=== PATIENT | male | born 1955 | race Caucasian/White ===

== ENCOUNTER 2020-06-20 10:01 | Outpatient (CLI) | payer MEDICARE, SELFPAY | END 2020-06-20 10:02 | disposition home or self-care (01) | PROVIDERS: PCP Family Medicine | DX: Z23 Encounter for immunization (principal) | CPT/HCPCS: 0001A; 91300 ==

== ENCOUNTER 2020-07-11 10:00 | Outpatient (CLI) | payer MEDICARE, SELFPAY | END 2020-07-11 10:01 | disposition home or self-care (01) | LOC: ANHCOVIDVC 10:00 | PROVIDERS: PCP Family Medicine | DX: Z23 Encounter for immunization (principal) | CPT/HCPCS: 0002A; 91300 ==

== ENCOUNTER 2021-01-13 17:57 | Emergency (ER) | payer MEDICARE, SELFPAY ==
--- NOTE | ~2021-01-13 | XR_ITS ---
EXAMINATION: XR foot RT min 3V DATE: 01/13/2021 18:12 INDICATION: Right foot pain, initial encounter TECHNIQUE: Dorsoplantar, lateral, and 2 oblique views of the right foot were obtained. COMPARISON: None. FINDINGS: There is an acute, traumatic, comminuted fracture of the fifth proximal phalanx which does not definitely involve the metatarsophalangeal joint. Soft tissue swelling surrounds the fracture. No additional fracture is identified. Posterior and plantar calcaneal enthesophytes are noted. IMPRESSION: 1. Acute comminuted fracture of the fifth proximal phalanx. Reviewed, dictated and finalized at location A.
[2021-01-13 18:18] VITALS: BP 149/94; PULSE 77; RESP 14; TEMP 36.7; O2SAT 99
[2021-01-13 18:28] VITALS: BP 140/82; PULSE 77; RESP 18; O2SAT 99
--- NOTE | 2021-01-13 18:43 | ED.LOWEXIN ---
HPI - Extremity Injury (Lower) General Chief Complaint: Extremity Injury, Lower Stated Complaint: Right Foot Injury Time Seen by Provider: 01/13/21 18:25 Source: patient Mode of arrival: ambulatory Limitations: no limitations History of Present Illness HPI Narrative: This is a 65-year-old male that presents to the emergency department for right little toe injury sustained just prior to arrival. Reports he got his toe caught on a bookshelf. Reports pain and swelling to the area. Denies numbness. Related Data Allergies Allergy/AdvReac Type Severity Reaction Status Date / Time No Known Allergies Allergy Mild Unverified 10/04/13 14:14 Review of Systems Review of Systems: CONSTITUTIONAL: Denies fever MUSCULOSKELETAL: Reports joint pain, and myalgia. NEUROLOGIC: Denies numbness All systems reviewed & are unremarkable except as noted in HPI and below PMFSH Past Medical History Medical History (Updated 01/13/21 @ 18:50 by Elizabeth Beard PA-C) BMI 28.0-28.9,adult BMI 29.0-29.9,adult Carpal tunnel syndrome on both sides Essential (primary) hypertension Exposure to COVID-19 virus Gastro-esophageal reflux disease without esophagitis Lab test positive for detection of COVID-19 virus Nocturia Family History Family History (Updated 08/10/18 @ 16:57 by DOCTOR UNKNOWN) Father Hypertension Patient's father is in good health Mother Hypertension Diabetes mellitus Patient's mother is in good health Carcinoma of colon Grandparent Family history of rheumatoid arthritis Family history of cardiovascular disease Cerebrovascular accident Family history of malignant neoplasm of breast, Onset Age: 70 Family history of dementia Social History Social History Smoking status: Never smoker Alcohol intake: never Exam Narrative: GENERAL: Well-appearing, well-nourished, and in no acute distress. HEAD: Normocephalic, atraumatic. EYES: EOMI. EXTREMITIES: Normal range of motion. No obvious deformity. Mild swelling about the right 5th toe, painful with palpation. Normal DP pulses SKIN: Warm, dry, no rash. NEURO: No focal deficits. Alert and oriented x3. PSYCH: Normal mood and affect Course Vital Signs Vital signs: Vital Signs Temperature 98.0 F 01/13/21 18:18 Pulse Rate 77 01/13/21 18:18 Respiratory Rate 14 01/13/21 18:18 Blood Pressure 149/94 H 01/13/21 18:18 Pulse Oximetry 99 01/13/21 18:18 Temperature 98.0 F 01/13/21 18:18 Pulse Rate 77 01/13/21 18:28 Respiratory Rate 18 01/13/21 18:28 Blood Pressure 140/82 01/13/21 18:28 Pulse Oximetry 99 01/13/21 18:28 MDM - Extremity Injury (Lower) MDM Narrative Medical decision making narrative: Patient presents to the emergency department for right fifth toe injury sustained just prior to arrival. Right foot x-ray shows an acute comminuted fracture of the fifth proximal phalanx. Patient clyde taped and placed in postop shoe. Instructed to follow-up with his primary doctor. He was given warnings to return to the ER Imaging Data Radiologist's impression: ITS Impressions Foot X-Ray 01/13/21 18:26 IMPRESSION: 1. Acute comminuted fracture of the fifth proximal phalanx. Critical Care Time Critical Care Time Critical Care Time: No Discharge Plan Discharge Clinical Impression: Fracture of toe of right foot Qualifiers: Encounter type: initial encounter Toe: lesser toe Fracture type: closed Phalanx: proximal Fracture alignment: nondisplaced Qualified Code(s): S92.514A - Nondisplaced fracture of proximal phalanx of right lesser toe(s), initial encounter for closed fracture Patient Disposition: Home, Self-Care Condition: Stable Instructions: Toe Fracture (ED) Additional Instructions: Return to the emergency department if you experience fever, redness and swelling of your foot, numbness, or any other symptoms that are concerning to you Rest. Ice
== END 2021-01-13 19:13 | disposition home or self-care (01) ==
LOC: ANHED 18:58
PROVIDERS: Emergency Provider Emergency Medicine; PCP Family Medicine
DX: S92.514A Nondisplaced fracture of proximal phalanx of right lesser toe(s), initial encounter for closed fracture (principal); I10 Essential (primary) hypertension; K21.9 Gastro-esophageal reflux disease without esophagitis; Z86.16 Personal history of COVID-19; W22.8XXA Striking against or struck by other objects, initial encounter
CPT/HCPCS: 73630; 99283; 99284

== ENCOUNTER 2021-04-25 02:31 | Day surgery (SDC) | payer MEDICARE, SELFPAY ==
[2021-04-10 15:02] VITALS: BMI 27.9
--- NOTE | 2021-04-24 14:44 | WPDANESEPPF ---
Anes - Initial Pre Proc Eval Procedure: Operation Date: 04/25/21 10:00 Proposed Procedures p Screening Colonoscopy - Scott Dubois MD Date/Time: 04/24/21 14:44 Surgeon: Scott Dubois MD Pre Op Diagnosis: family hx of colon ca Patient Data Age: 66 Gender: M Height: 1.8 m Weight: 91 kg Allergies Allergy/AdvReac Type Severity Reaction Status Date / Time No Known Allergies Allergy Mild Verified 04/25/21 09:14 Home Medications Medication Instructions Recorded Confirmed Type fluticasone propionate 50 1 spray NASAL BID #18 ml 03/22/20 04/25/21 Rx mcg/actuation nasal spray,suspension amlodipine 10 mg tablet 10 mg PO DAILY #30 tablet 10/02/20 04/25/21 Rx omeprazole 20 mg capsule,delayed 20 mg PO DAILY #90 cap 01/08/21 04/25/21 Rx release irbesartan 300 1 tablet PO DAILY #30 tablet 02/12/21 04/25/21 Rx mg-hydrochlorothiazide 12.5 mg tablet Patient hx anesthesia problems: none Family hx anesthesia problems: none Results Review: All pre-operative results and documents have been reviewed as part of the pre-operative evaluation. [facility] Past Medical History Medical History (Updated 03/06/21 @ 10:36 by Bridger Miller MD) BMI 28.0-28.9,adult BMI 29.0-29.9,adult Carpal tunnel syndrome on both sides Chronic low back pain with right-sided sciatica COVID-19 (11/01/19) Encounter for prostate cancer screening Essential (primary) hypertension Exposure to COVID-19 virus Gastro-esophageal reflux disease without esophagitis Nocturia Family History Family History (Updated 08/10/18 @ 16:57 by DOCTOR UNKNOWN) Father Hypertension Patient's father is in good health Mother Hypertension Diabetes mellitus Patient's mother is in good health Carcinoma of colon Grandparent Family history of rheumatoid arthritis Family history of cardiovascular disease Cerebrovascular accident Family history of malignant neoplasm of breast, Onset Age: 70 Family history of dementia Social History Social History (Updated 03/06/21 @ 09:25 by Bing Reeves MA) Smoking status: Never smoker Alcohol intake: never Substance use: never Substance use type: does not use Living arrangements: with family Spiritual care concerns: No Anes - Eval Final PreProcedure Day of Procedure 04/24/21 14:44 Patient weight: overweight Heart: regular rate and rhythm Lungs: clear to auscultation and normal air movement Airway: Mallampati scale class II Neurological: alert and oriented Last oral intake: >/= 8 hours ASA classification: II Emergent: no Anesthetic plan: proceed Anesthesia type and monitoring: general GIVS and standard monitoring Results Review: All pre-operative results and documents have been reviewed as part of the pre-operative evaluation. Informed Consent: The patient's anesthetic plan and its attendant risks and benefits were discussed with the patient/family/POA. Questions were solicited and answers provided to the satisfaction of the patient/family/POA.
[2021-04-25 09:17] VITALS: BP 157/90; PULSE 98; RESP 18; TEMP 36.8; O2SAT 100; BMI 27.7
[2021-04-25] MEDS: LACTATED RINGERS 1,000 ML 150 ML IV CONT (09:20)
--- NOTE | 2021-04-25 09:24 | WPDGICN ---
Assessment and Plan Assessment and plan (1) Family history of malignant neoplasm of colon in mother: Code(s): Z80.0 - Family history of malignant neoplasm of digestive organs Status: Acute Assessment and Plan: Patient presents for interval colonoscopy because of family history of colon cancer in his mother. Further recommendations will be given after endoscopy. GI Consult Note Consult date/time: 04/25/21 09:24 HPI: Chaitanya Ashford is a 66 year old male Presents for screening colonoscopy. Patient's current weight appetite bowel movements are normal. He denies abdominal pain. He has had no bleeding. Family history is Significant that his mother had colon cancer. Patient reports his own weight appetite bowel movements are normal. Review of Systems Review of Systems: All systems reviewed & are unremarkable except as noted in HPI and below PMFSH Past Medical History Medical History (Updated 03/06/21 @ 10:36 by Bridger Miller MD) BMI 28.0-28.9,adult BMI 29.0-29.9,adult Carpal tunnel syndrome on both sides Chronic low back pain with right-sided sciatica COVID-19 (11/01/19) Encounter for prostate cancer screening Essential (primary) hypertension Exposure to COVID-19 virus Gastro-esophageal reflux disease without esophagitis Nocturia Family History Family History (Updated 08/10/18 @ 16:57 by DOCTOR UNKNOWN) Father Hypertension Patient's father is in good health Mother Hypertension Diabetes mellitus Patient's mother is in good health Carcinoma of colon Grandparent Family history of rheumatoid arthritis Family history of cardiovascular disease Cerebrovascular accident Family history of malignant neoplasm of breast, Onset Age: 70 Family history of dementia Social History Social History (Updated 03/06/21 @ 09:25 by Bing Reeves MA) Smoking status: Never smoker Alcohol intake: never Substance use: never Substance use type: does not use Living arrangements: with family Spiritual care concerns: No Meds Home Medications and Allergies Home Medications Medication Instructions Recorded Confirmed Type fluticasone propionate 50 1 spray NASAL BID #18 ml 03/22/20 04/25/21 Rx mcg/actuation nasal spray,suspension amlodipine 10 mg tablet 10 mg PO DAILY #30 tablet 10/02/20 04/25/21 Rx omeprazole 20 mg capsule,delayed 20 mg PO DAILY #90 cap 01/08/21 04/25/21 Rx release irbesartan 300 1 tablet PO DAILY #30 tablet 02/12/21 04/25/21 Rx mg-hydrochlorothiazide 12.5 mg tablet Allergies Allergy/AdvReac Type Severity Reaction Status Date / Time No Known Allergies Allergy Mild Verified 04/25/21 09:14 Vital Signs Vital Signs - 24 hr 04/25/21 09:17 Temperature 98.2 F Pulse Rate 98 Respiratory Rate 18 Blood Pressure 157/90 H Pulse Oximetry 100 Exam Narrative: Physical exam reveals patient to be alert. Vital signs stable. HEENT exam is unremarkable. Patient is anicteric. Lungs are clear to auscultation and percussion. Heart is without murmur or extra sounds. Abdominal exam bowel sounds present soft nontender with no hepatosplenomegaly. Digital external rectal exam is normal.
[2021-04-25 10:20] VITALS: BP 105/63; PULSE 74; RESP 16; O2SAT 100
[2021-04-25 10:39] VITALS: BP 134/91; PULSE 70; RESP 16; O2SAT 100
== END 2021-04-25 10:42 | disposition home or self-care (01) ==
PROVIDERS: PCP Family Medicine; Visit Provider Internal Medicine Gastroenterology
PROC: 0DJD8ZZ Inspection of Lower Intestinal Tract, Via Natural or Artificial Opening Endoscopic (ICD-10-PCS; CPT 45378; principal; 2021-04-25 10:00)
DX: Z12.11 Encounter for screening for malignant neoplasm of colon (principal); K63.5 Polyp of colon; K21.9 Gastro-esophageal reflux disease without esophagitis; K64.8 Other hemorrhoids; Z86.16 Personal history of COVID-19; I10 Essential (primary) hypertension; Z80.0 Family history of malignant neoplasm of digestive organs; M54.31 Sciatica, right side
CPT/HCPCS: 45380; 88305; J7120

== ENCOUNTER → 2021-09-24 13:41 | Outpatient (CLI) | payer MEDICARE, SELFPAY ==
--- NOTE | ~2021-09-24 | XR_ITS ---
XR_[id number]_CR DATE: 09/24/2021 14:01 INDICATION: Neck pain for about one month TECHNIQUE: AP, open-mouth, lateral, swimmer views COMPARISON: None FINDINGS: There is straightening of the cervical spine which may be due to muscle spasm. C1 and C2 are normally aligned and the odontoid process is intact. No fracture or dislocation or lock ed facet or prevertebral soft tissue swelling. There is mild degenerative disc disease and mild retrolisthesis at C5-6 and C6-7. There is prominent uncovertebral joint spurring bilaterally at C6-7. IMPRESSION: Mild degenerative disc disease and retrolisthesis at C5-6 and C6-7 Prominent uncovertebral joint spurring at C6-7 Straightening of the cervical spine which may be due to muscle spasm Reviewed, dictated and finalized at Location [facility]. Reviewed, dictated and finalized at location A.
== END ==
PROVIDERS: PCP Family Medicine; Visit Provider Nurse Practitioner Family
DX: M50.323 Other cervical disc degeneration at C6-C7 level (principal)
CPT/HCPCS: 72040

== ENCOUNTER → 2021-10-08 11:43 | Outpatient (CLI) | payer MEDICARE, SELFPAY ==
--- NOTE | ~2021-10-08 | XR_ITS ---
EXAM: XR lumbar spine min 4V DATE: 10/08/2021 12:15 HISTORY: M54.41 - Lumbago with sciatica, right side . COMPARISON: None available. FINDINGS: 5 nonrib-bearing lumbar-type vertebral bodies. Pedicles intact. Mild grade 1 retrolisthesi s of L1 on L2 and L2 on L3. 6 mm anterolisthesis of L4 on L5. Vertebral body heights preserved. Multi level disc space narrowing and marginal osteophytosis, with vacuum disc phenomenon at L2-3. Multileve l facet sclerosis and hypertrophy in the lower lumbar spine. No pars defect. No fracture or dislocati on. IMPRESSION: Multilevel grade 1 listheses. Multilevel degenerative disc disease, severe at L2-3. Multi level lower lumbar facet arthropathy. Reviewed, dictated and finalized at location K. IMPRESSION: Multilevel grade 1 listheses. Multilevel degenerative disc disease, severe at L2-3. Multilevel lower lumbar facet arthropathy.
== END ==
PROVIDERS: PCP Family Medicine; Visit Provider Family Medicine
DX: M54.41 Lumbago with sciatica, right side (principal); G89.29 Other chronic pain; M51.36 Other intervertebral disc degeneration, lumbar region
CPT/HCPCS: 72110

== ENCOUNTER 2021-10-14 15:23 | Outpatient (CLI) | payer MEDICARE, SELFPAY ==
--- NOTE | ~2021-10-14 | MR_ITS ---
EXAMINATION: MR lumbar spine wo con DATE: 10/14/2021 16:20 INDICATION: Intermittent bilateral lower extremity weakness TECHNIQUE: Magnetic resonance imaging (MRI) of the lumbar spine was performed without intravenous con trast. Sequences included sagittal T2-weighted FSE, sagittal T2-weighted FS FSE, sagittal T1-weighted FSE, and axial T2-weighted FSE. COMPARISON: None FINDINGS: 5 mm anterolisthesis L4 on L5. One half and 2 mm retrolisthesis L3 on L4. Vertebral body heights are normal. Moderate to severe left-sided predominant disc height loss at L3-L4. There is associated left -sided degenerative endplate remodeling with fibrovascular degenerative endplate changes and with mil d left-sided vertebral body height loss at L2. There is secondary minimal dextrocurvature centered at L2. Additional mild disc height loss at L1-L2, L3-L4 and L5-S1. There is a somewhat heterogeneous pa ttern of red and yellow marrow. Indeterminate 1.5 x 1.4 x 1.8 cm T2 hyperintense, T1 hypointense lesi on at the right side of the L5 vertebral body. The conus medullaris terminates at L1-L2. There is nor mal signal in the caudal spinal cord. Paravertebral soft tissues are unremarkable. The following disc levels are specifically discussed: T12-L1: The disc does not extend beyond the endplate margin. There is mild bilateral facet joint oste oarthritis. There is no neural foraminal stenosis. There is no central canal stenosis. L1-L2: Disc is bulging. There is mild bilateral facet joint osteoarthritis. There is mild bilateral n eural foraminal stenosis. There is mild central canal stenosis. L2-L3: Disc is bulging. There is mild bilateral facet joint osteoarthritis. There is mild to moderate bilateral neural foraminal stenosis. There is mild central canal stenosis with narrowing of the left lateral recess. L3-L4: Disc is bulging. There is mild left and moderate right facet joint osteoarthritis. There is mo derate right and mild to moderate left neural foraminal stenosis. There is mild central canal stenosi s including narrowing of the left and right lateral recesses. L4-L5: Disc is bulging There is severe bilateral facet joint osteoarthritis. There is mild left and m ild to moderate right neural foraminal stenosis. There is moderate central canal stenosis including n arrowing of the left and right lateral recesses. L5-S1: Disc is bulging with superimposed annular fissure and left foraminal zone disc extrusion with disc bulge extending couple millimeters cephalad and caudal to the level of the endplates. There is m oderate bilateral facet joint osteoarthritis. There is moderate bilateral neural foraminal stenosis. There is mild central canal stenosis with narrowing of the left and right lateral recesses. IMPRESSION: 1. Indeterminate 1.5 x 1.4 x 1.8 cm T2 hyperintense, T1 hypointense lesion at the L5 vertebral body. Which could be either benign atypical hemangioma or malignant/metastatic. Correlate for any prior his tory of malignancy and any prior outside imaging. Consider further evaluation with CT and/or bone sca n. 2. Moderate to severe spondylosis at L2-L3 and mild to moderate spondylosis throughout the remainder of the lumbar spine. 3. 5 mm anterolisthesis L4 on L5 with moderate central canal stenosis. Reviewed, dictated and finalized at location A. IMPRESSION: 1. Indeterminate 1.5 x 1.4 x 1.8 cm T2 hyperintense, T1 hypointense lesion at t he L5 vertebral body. Which could be either benign atypical hemangioma or malig nant/metastatic. Correlate for any prior history of malignancy and any prior ou tside imaging. Consider further evaluation with CT and/or bone scan. 2. Moderate to severe spondylosis at L2-L3 and mild to moderate spondylosis thr oughout the remainder of the lumbar
== END 2021-10-14 15:24 | disposition home or self-care (01) ==
PROVIDERS: PCP Family Medicine; Visit Provider Family Medicine
DX: M47.817 Spondylosis without myelopathy or radiculopathy, lumbosacral region (principal); M48.07 Spinal stenosis, lumbosacral region; M54.41 Lumbago with sciatica, right side; G89.29 Other chronic pain; G95.19 Other vascular myelopathies
CPT/HCPCS: 72148

== ENCOUNTER 2022-04-09 11:32 | Emergency (ER) | payer MEDICARE, SELFPAY ==
--- NOTE | ~2022-04-09 | US_ITS ---
EXAMINATION: US venous doppler [facility] DATE: 04/09/2022 13:48 INDICATION: Left lower limb pain and swelling. TECHNIQUE: Grayscale ultrasound images without and with compression and Doppler ultrasound images of the left lower extremity veins were obtained. COMPARISON: None. FINDINGS: The visualized portions of left common femoral vein, profunda (deep) femoral vein, femoral vein, popl iteal vein, peroneal veins, posterior tibial veins, and greater saphenous vein outflow are patent. IMPRESSION: 1. No deep venous thrombosis. Reviewed, dictated and finalized at location A. ER
[2022-04-09 11:34] VITALS: BP 141/105; PULSE 73; RESP 20; TEMP 36.5; O2SAT 100
--- NOTE | 2022-04-09 15:35 | ED.EXTPRO ---
HPI - Extremity Problem General Chief complaint: Extremity Problem,Nontraumatic Stated complaint: L leg swelling Time Seen by Provider: 04/09/22 15:22 History of Present Illness HPI Narrative: Pt presents with redness and swelling to left lower leg starting last night. Pt denies fever or chills. Pt denies injury. Related Data Home Medications Medication Instructions Recorded Confirmed cyanocobalamin (vitamin B-12) 1,000 mcg PO DAILY 03/15/22 03/19/22 1,000 mcg tablet Allergies Allergy/AdvReac Type Severity Reaction Status Date / Time No Known Allergies Allergy Mild Verified 04/09/22 15:01 Review of Systems Review of Systems: All systems reviewed & are unremarkable except as noted in HPI and below PMFSH Past Medical History Medical History (Updated 04/09/22 @ 15:39 by Bunny Cuevas III, ) Acute non-recurrent maxillary sinusitis BMI 28.0-28.9,adult BMI 29.0-29.9,adult BPH without obstruction/lower urinary tract symptoms Carpal tunnel syndrome on both sides Chronic low back pain with right-sided sciatica x-ray of the lumbar spine 10/08/2021 reveals multilevel degenerative disc disease with anteriolisthesis at multiple levels with severe disc disease at L2-L3. Colon polyp, hyperplastic (04/25/21) polyp of the sigmoid colon Dr. Dubois with recheck in 5 years COVID-19 (11/01/19) COVID-19 (10/24/21) 2nd episode and vaccinated with positive home test 10/27/2021. Encounter for prostate cancer screening Essential (primary) hypertension Exposure to COVID-19 virus Gastro-esophageal reflux disease without esophagitis Neck Pain Neurogenic claudication MRI of the lumbar spine on 10/14/2021 reveals moderate to severe degenerative disc disease at L2-L3 with disc disease at L5-S1 with annular fissure with disc extrusion with moderate neural foraminal stenosis bilaterally. Moderate spinal canal stenosis at L4-L5. Intermediate lesion of the L5 vertebral body 1.51.4 x 1.8 cm. Nocturia PSA 0.6 on 02/28/2022. Overweight (BMI 25.0-29.9) Vitamin B12 deficiency (02/28/22) level low at 376 with goal greater than 400 on 02/28/2022. Family History Family History (Reviewed 09/24/21 @ 13:13 by Aubrey Gonsalez [facility]) Father Hypertension Patient's father is in good health Mother Hypertension Diabetes mellitus Patient's mother is in good health Carcinoma of colon Grandparent Family history of rheumatoid arthritis Family history of cardiovascular disease Cerebrovascular accident Family history of malignant neoplasm of breast, Onset Age: 70 Family history of dementia Social History Social History (Updated 03/19/22 @ 08:53 by Bing Reeves MA) Smoking status: Never smoker Alcohol intake: never Substance use: never Substance use type: does not use Lack of Transportation: YES Lack of Food: Never True Current Housing: I Have Housing Concerned About Future Housing: No Difficulty Paying Gas/Electric Bills: No Difficulty Paying for Meds: No Currently Unemployed: No Education: High School Diploma/GED Difficulty w/ Childcare or Family Care: No Spiritual care concerns: No Exam Const: General: healthy appearing Nutritional Appearance: well nourished Orientation/consciousness: patient oriented x3 Limitations: no limitations Resp: Effort & Inspection: normal respiratory effort Auscultation: clear to auscultation bilaterally Cardio: Rate: regular rate Rhythm: regular rhythm GI: GI Palp: Yes Soft to palpation and No Tenderness to palpation present (GI) Auscultation: normal bowel sounds Skin: Wounds: no wounds Other: erythema to left lower leg and ankle. no calf tenderness Neuro: General: patient oriented x3 and moves all extremities Speech: normal speech Extrem: General: edema Other: see skin exam above Psych: Mental Status: mental status grossly normal Affect: normal affect Attitude: cooperative Course Vital Signs Vital signs: Vital Signs Temperat
== END 2022-04-09 15:50 | disposition home or self-care (01) ==
LOC: ANHED 15:47
PROVIDERS: Emergency Provider Emergency Medicine; PCP Family Medicine
DX: L03.116 Cellulitis of left lower limb (principal); I10 Essential (primary) hypertension; K21.9 Gastro-esophageal reflux disease without esophagitis; E66.3 Overweight; Z68.28 Body mass index [BMI] 28.0-28.9, adult; E53.8 Deficiency of other specified B group vitamins; Z86.16 Personal history of COVID-19
CPT/HCPCS: 93971; 99284